=== PATIENT | male | born 1940 | race Caucasian/White ===

== ENCOUNTER 2016-10-05 09:16 | Emergency (ER) | payer MEDICARE ==
[2016-10-05 09:27] VITALS: BMI 28.3
[2016-10-05 09:30] VITALS: TEMP 97.6; O2SAT 98
[2016-10-05] MEDS: Lidocaine 1% Inj (20ml) ONE (10:39)
--- NOTE | 2016-10-05 11:17 | ED PDOC ---
Arrival/HPI - General Chief Complaint: Abnormal Skin Integrity Time Seen by Provider: 10/05/16 11:14 Historian: Patient - History of Present Illness Narrative History of Present Illness (Text): 10/05/16 10:46 This 76 yo male with pmh dm, presents to this ED c/o left index finger laceration since yesterday at 8 pm at work. He is self employed. Last tetanus is [facility]. Finger has FROM Time/Duration: Other (since last night) Context: Work Past Medical History - Provider Review Nursing Documentation Reviewed: Yes - Cardiac Hx Hypertension: Yes - Psychiatric Hx Substance Use: No Family/Social History - Physician Review Nursing Documentation Reviewed: Yes Family/Social History: No Known Family HX Smoking Status: Unknown If Ever Smoked Hx Alcohol Use: No Hx Substance Use: No Allergies/Home Meds Allergies/Adverse Reactions: Allergies No Known Allergies Allergy (Verified 10/05/16 09:26) Review of Systems - Review of Systems Constitutional: Normal. absent: Fatigue, Weight Change Eyes: Normal ENT: Normal Respiratory: Normal Cardiovascular: Normal Gastrointestinal: Normal Genitourinary Male: Normal Musculoskeletal: Other (Left index finger laceration) Skin: Normal Neurological: Normal Endocrine: Normal Hemo/Lymphatic: Normal Psychiatric: Normal Physical Exam Vital Signs Temp Pulse Resp BP Pulse Ox 10/05/16 11:08 61 18 165/71 H 98 10/05/16 09:16 97.6 F 64 17 168/78 H 98 Temperature: Afebrile Blood Pressure: Normal Pulse: Regular Respiratory Rate: Normal Appearance: Positive for: Well-Appearing, Non-Toxic, Comfortable Pain Distress: None Mental Status: Positive for: Alert and Oriented X 3 - Systems Exam Head: Present: Atraumatic, Normocephalic Pupils: Present: PERRL Extroacular Muscles: Present: EOMI Conjunctiva: Present: Normal Mouth: Present: Moist Mucous Membranes Neck: Present: Normal Range of Motion Upper Extremity: Present: Normal ROM, NORMAL PULSES, Neurovascularly Intact, Capillary Refill < 2s, Other ((+) left index finger laceration, lateral radial aspect of distal finger, finger nail bed not involved. Fingers have FROM. Normal sensation left 2nd distal index finger). No: Cyanosis, Edema Lower Extremity: Present: Normal Inspection, NORMAL PULSES, Normal ROM, Neurovascularly Intact, Capillary Refill < 2 s. No: CALF TENDERNESS Neurological: Present: CN II-XII Intact, Motor Func Grossly Intact, Normal Sensory Function, Normal Cerebellar Funct, Norm Deep Tendon Reflexes Skin: Present: Warm, Dry, Normal Color, Laceration (See UE). No: Rashes Psychiatric: Present: Alert, Oriented x 3 Medical Decision Making ED Course and Treatment: 10/05/16 12:19 Re-evaluation. Patient feels better. Discussed results and plan with patient who expresses understanding. All questions answered and there is agreement with the plan to discharge home with instructions. Patient stable for discharge. Return if symptoms persist or worsen. Re-evaluation Time: 12:19 Reassessment Condition: Re-examined, Improved - RAD Interpretation Narrative RAD Interpretations (Text): 10/05/16 12:19 Accession No. : [id number] Patient Name / ID : ENE RENTERIA / [id number] Exam Date : 10/05/2016 11:30:02 ( Approved ) Study Comment : Sex / Age : M / 76Y Creator : Elizabeth Plaza V. Dictator : Elizabeth Plaza V. Survey Party Chief : Licensed Clinical Psychologist : Elizabeth Plaza V. Approver2 : Report Date : 10/05/2016 11:57:55 My Comment : PROCEDURE: Left Index finger radiographs. HISTORY: pain s/p trauma COMPARISON: None. TECHNIQUE: AP radiograph of the left hand, as well as spot oblique and lateral images of index finger were obtained. FINDINGS: LEFT INDEX FINGER: Normal left index finger, without fracture or focal lesion. No radiopaque foreign body noted Remainder of the left hand (as seen on the AP view) grossly intact. 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 SOFT TISSUES: History of soft tissue laceration. OTHER FINDINGS: None. IMPRESSION: No current osseous related trauma or fracture or foreign body regarding patient' s 2nd traumatized digit. Elsewhere osteoarthrosis Radiology Orders: 10/05/16 11:14 HAND LEFT 2ND DIGIT (FINGER) [RAD] Stat - Medication Orders Current Medication Orders: Discontinued Medications Amoxicillin/Clavulanate Potassium (Augmentin 875 Mg-125 Mg Tab) 1 tab PO STAT STA PRN Reason: Protocol Stop: 10/05/16 11:16 Last Admin: 10/05/16 11:28 Dose: 1 TAB Lidocaine HCl (Lidocaine 1% (20ml)) Confirm Administered Dose 20 ml .ROUTE .STK- MED ONE Stop: 10/05/16 10:15 Last Admin: 10/05/16 10:39 Dose: 20 ML Comments: Given to PA to use on LAC Tetanus/Reduced Diphtheria/Acell Pertussis (Boostrix Vaccine Inj) 0.5 ml IM .ONCE ONE Stop: 10/05/16 11:17 Last Admin: 10/05/16 11:28 Dose: 0.5 ML [facility] Immunization Data Document 10/05/16 11:28 [facility] [place] (Rec: 10/05/16 11:29 [facility] [place] [id number]) Immunization Data Vaccine Lot Number [id number] Vaccine Expiration Date 09/08/18 - Procedure PROCEDURE NOTE (Text): 10/05/16 12:00 PROCEDURE: LACERATION REPAIR Performed by the emergency provider Location: left index finger Length: 3.5 cm Description: clean wound edges, no foreign bodies Distal CMS: Normal. No deficits. Neurovascularly intact. Anesthesia: Lidocaine 1% without Epi, approx. 2cc Preparation: The wound was cleaned with NS and [place]. The area was prepped and draped in the usual sterile fashion. Exploration: The wound was explored and no foreign bodies were found. Procedure: The wound was closed with 5-0 nylon, interrupted. There was good approximation. In total, 8 sutures were used. Post-Procedure: Good closure and hemostasis. The patient tolerated the procedure well and there were no complications. CSM remains intact. Post procedure dressing applied. Disposition/Present on Arrival - Present on Arrival Any Indicators Present on Arrival: No History of DVT/PE: No History of Uncontrolled Diabetes: No Urinary Catheter: No History of Decub. Ulcer: No History Surgical Site Infection Following: None - Disposition Have Diagnosis and Disposition been Completed?: Yes Diagnosis: Laceration Disposition: HOME/ ROUTINE Disposition Time: 12:20 Patient Plan: Discharge Condition: GOOD Discharge Instructions (ExitCare): Laceration (ED) Additional Instructions: Call private doctor for follow up visit in 2-3 days for wound check. Sutures needs to be removed in 8-10 days. Take medication as instructed. Keep wound clean and dry for 2 days, then clean wound with soap and water once daily. Return to emergency if wound becomes painful, redness, discharge or unable to see your doctor. Prescriptions: Amoxicillin/Clavulanate [Augmentin 875 MG-125 MG] 1 tab PO BID #14 tab Referrals: Nishi Osuna MD [Primary Care Provider] - Follow up with primary
[2016-10-05 11:19] VITALS: BP 165/71; PULSE 61; RESP 18
[2016-10-05] MEDS: Amoxicillin-Clav 875-125 mg Tab PO STA (11:28)
[2016-10-05] MEDS: TDAP Vaccine 0.5 mL Syr IM ONE (11:28)
--- NOTE | 2016-10-05 11:59 | RAD ---
PROCEDURE: Left Index finger radiographs. HISTORY: pain s/p trauma COMPARISON: None. TECHNIQUE: AP radiograph of the left hand, as well as spot oblique and lateral images of index finger were obtained. FINDINGS: LEFT INDEX FINGER: Normal left index finger, without fracture or focal lesion. No radiopaque foreign body noted Remainder of the left hand (as seen on the AP view) grossly intact. 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 SOFT TISSUES: History of soft tissue laceration. OTHER FINDINGS: None. IMPRESSION: No current osseous related trauma or fracture or foreign body regarding patient's 2nd traumatized digit. Elsewhere osteoarthrosis
== END 2016-10-05 12:35 | disposition home or self-care (01) ==
LOC: ED 09:16 → MERGE 09:16 → ED 12:35
DX: S61.211A Laceration without foreign body of left index finger without damage to nail, initial encounter (principal); X58.XXXA Exposure to other specified factors, initial encounter; Y99.0 Civilian activity done for income or pay; Z23 Encounter for immunization

== ENCOUNTER 2016-10-17 15:04 | Emergency (ER) | payer MEDICARE ==
[2016-10-17 15:33] VITALS: BP 124/69; PULSE 67; RESP 19; TEMP 98; O2SAT 98; BMI 29.2
--- NOTE | 2016-10-17 15:35 | ED PDOC ---
Arrival/HPI - General Chief Complaint: Suture/Staple Removal Time Seen by Provider: 10/17/16 15:29 Historian: Patient - History of Present Illness Narrative History of Present Illness (Text): 10/17/16 15:32 76 y/o male, here for the suture removal from the lt. hand 2nd digit s/p sutured about 10 days ago. wound healing well and dry, no fever or chills, no headache or night sweat, no numbness or tingling, no other medical or psychological complaints. Past Medical History - Provider Review Nursing Documentation Reviewed: Yes - Infectious Disease Hx of Infectious Diseases: None - Cardiac Hx Cardiac Disorders: Yes Hx Hypertension: Yes - Pulmonary Hx Respiratory Disorders: No - Neurological Hx Neurological Disorder: No - HEENT Hx HEENT Disorder: No - Renal Hx Renal Disorder: No - Endocrine/Metabolic Hx Endocrine Disorders: No - Hematological/Oncological Hx Blood Disorders: No - Integumentary Hx Dermatological Disorder: No - Musculoskeletal/Rheumatological Hx Musculoskeletal Disorders: Yes Hx Gout: Yes - Gastrointestinal Hx Gastrointestinal Disorders: No - Genitourinary/Gynecological Hx Genitourinary Disorders: No - Psychiatric Hx Psychophysiologic Disorder: No Hx Substance Use: No - Anesthesia Hx Anesthesia: No Family/Social History - Physician Review Nursing Documentation Reviewed: Yes Family/Social History: Unknown Family HX Smoking Status: Unknown If Ever Smoked Hx Alcohol Use: No Hx Substance Use: No Allergies/Home Meds Allergies/Adverse Reactions: Allergies No Known Allergies Allergy (Verified 10/17/16 15:18) Home Medications: Home Meds Medication Instructions Recorded Confirmed Allopurinol [Zyloprim] 100 mg PO DAILY 10/17/16 10/17/16 Atorvastatin [Lipitor] 10 mg PO DAILY 10/17/16 10/17/16 Review of Systems - Review of Systems Constitutional: absent: Fatigue, Fevers Eyes: absent: Vision Changes ENT: absent: Hearing Changes Respiratory: absent: Cough, Sputum Cardiovascular: absent: Chest Pain Gastrointestinal: absent: Abdominal Pain, Nausea, Vomiting Neurological: absent: Headache, Dizziness, Focal Weakness, Gait Changes, Speech Changes, Facial Droop, Disequilibrium Physical Exam Vital Signs Reviewed: Yes Vital Signs Temp Pulse Resp BP Pulse Ox 10/17/16 15:23 98.0 F 67 19 124/69 98 Temperature: Afebrile Blood Pressure: Normal Pulse: Regular Respiratory Rate: Normal Appearance: Positive for: Well-Appearing, Non-Toxic, Comfortable Pain Distress: None Mental Status: Positive for: Alert and Oriented X 3 - Systems Exam Head: Present: Atraumatic, Normocephalic Pupils: Present: PERRL Extroacular Muscles: Present: EOMI Conjunctiva: Present: Normal Mouth: Present: Moist Mucous Membranes Neck: Present: Normal Range of Motion Respiratory/Chest: Present: Clear to Auscultation, Good Air Exchange. No: Respiratory Distress, Accessory Muscle Use Cardiovascular: Present: Regular Rate and Rhythm, Normal S1, S2. No: Murmurs Abdomen: Present: Normal Bowel Sounds. No: Tenderness, Distention, Peritoneal Signs Back: Present: Normal Inspection Upper Extremity: Present: Normal Inspection, Other (Lt.hand 2nd digit: visible 8 stiches wound with skin scar noted on the laceration site, no cellulitis or streaking, no ulcers, FROM without limitation, sensation intact, motor 5/5, + radial pulse, capillary refill< 2 seconds, neurovascular intact. ). No: Cyanosis, Edema Lower Extremity: Present: Normal Inspection. No: Edema Neurological: Present: GCS=15, CN II-XII Intact, Speech Normal Skin: Present: Warm, Dry, Normal Color. No: Rashes Psychiatric: Present: Alert, Oriented x 3, Normal Insight, Normal Concentration Medical Decision Making ED Course and Treatment: 10/17/16 15:34 -8 stiches removed with success. -Discharge home with education on follow up with your own pmd within 2 days, return to the ER for any new or worsening signs or symptoms. - PA / UNISAW OPERATOR / Resident Statement MD/DO has reviewed & agrees with the documentation as recorded. Disposition/Present on Arrival - Present on Arrival Any Indicators Present on Arrival: No History of DVT/PE: No History of Uncontrolled Diabetes: No Urinary Catheter: No History of Decub. Ulcer: No History Surgical Site Infection Following: None - Disposition Have Diagnosis and Disposition been Completed?: Yes Diagnosis: Visit for suture removal Disposition: HOME/ ROUTINE Disposition Time: 15:35 Patient Plan: Discharge Condition: GOOD Additional Instructions: Discharge home with education on follow up with your own pmd within 2 days, return to the ER for any new or worsening signs or symptoms. Referrals: [facility] [place] [Outside] - Follow up with primary Forms: WORK NOTE
== END 2016-10-17 15:39 | disposition home or self-care (01) ==
LOC: ED 15:04
DX: Z48.02 Encounter for removal of sutures (principal)